=== PATIENT | female | born 1985 | race Caucasian/White ===

== ENCOUNTER 2017-02-17 14:55 | Inpatient (IN) ==
[2017-02-17] MEDS: LACTATED RINGERS 1,000 ML IV SCH ×2 (15:25→22:41)
[2017-02-17] MEDS ORDERED: INFLUENZA VIRUS VACCINE 0.5 ML SYRINGE IM ONE (15:27)
[2017-02-17] MEDS ORDERED: OXYTOCIN/LR 20 UNIT/1,000 ML BAG IV SCH (15:30)
[2017-02-17 16:23] LABS: Basophils % 0.2 % (0.0-0.8); Eosinophils % 0.1 % (0.00-10.9); Hematocrit 32.5 VOL% (35.7-47.0); Hemoglobin 11.2 GM/DL (12.0-16.0); Immature Granulocytes % 0.7 %; Immature Granulocytes Absolute 0.06 #; Lymphocytes # 1.2 10*3/uL (1.4-4.0); Lymphocytes % 14.7 % (21.3-54.2); Mean Corpuscular HGB Conc 34.5 GM/DL (32-36); Mean Corpuscular Hemoglobin 31 PG (27-34); Mean Corpuscular Volume 89.5 FL (87-102); Mean Platelet Volume 12.1 FL (9.6-12.0); Monocytes # 0.4 10*3/uL (0.11-0.8); Monocytes % 4.4 % (1.7-12.7); Neutrophils # 6.4 10*3/uL (1.4-7.4); Neutrophils % 79.9 % (38.7-73.9); Platelet Count 196 T/CUMM (130-400); Red Blood Count 3.63 MC/CUMM (3.8-5.5); Red Cell Distribution Width 11.8 % (9.3-17.3)
[2017-02-17] MEDS ORDERED: AMPICILLIN INJ 2,000 MG in SODIUM CHLORIDE 0.9% 50 ML IV ONE (16:30)
[2017-02-17] MEDS ORDERED: BUTORPHANOL 1 MG/ML VIAL ONE (16:39)
[2017-02-17] MEDS ORDERED: BUTORPHANOL 1 MG/ML VIAL IV PRN (16:40)
[2017-02-17 16:55] LABS: Alanine Aminotransferase 28 U/L (13-56); Albumin 2.5 G/DL (3.4-5.0); Alkaline Phosphatase 162 U/L (45-117); Aspartate Amino Transferase 27 U/L (0-37); Bilirubin,Total < 0.39 MG/DL (0.2-1.0); Blood Urea Nitrogen 6 MG/DL (7-18); Calcium 8.1 MG/DL (8.5-10.1); Glucose 76 MG/DL (74-106); Osmolality,Calculated 277.3 MOS/KG (273-304); Potassium 3.2 MMOL/L (3.5-5.1); Sodium 141 MMOL/L (136-145); Total Protein 6.1 G/DL (6.4-8.3); Uric Acid 5.4 MG/DL (2.6-6.0)
[2017-02-17] MEDS ORDERED: ONDANSETRON 4 MG/2 ML VIAL IV ONE (18:03)
[2017-02-17] MEDS ORDERED: ePHEDrine 50 MG/ML AMP IV PRN (18:03)
[2017-02-17] MEDS ORDERED: CITRIC ACID/SODIUM CITRATE 30 ML UDCUP PO ONE (18:03)
[2017-02-17] MEDS ORDERED: hydrOXYzine HCL 25 MG/1 ML VIAL IM PRN (18:03)
[2017-02-17] MEDS ORDERED: LACTATED RINGERS 1,000 ML IV ONE (18:03)
[2017-02-17] MEDS ORDERED: PROMETHAZINE 25 MG/1 ML VIAL IM ONE (18:03)
[2017-02-17] MEDS ORDERED: diphenhydrAMINE 50 MG/1 ML VIAL IV PRN ×2 (18:03)
[2017-02-17] MEDS ORDERED: FAMOTIDINE 20 MG/2 ML VIAL IV ONE (18:03)
[2017-02-17] MEDS ORDERED: fentaNYL 2 MCG/ROPIV 0.2% EPID 150 ML EPIDURAL SCH (18:30)
[2017-02-17 18:43] LABS: INR 0.9; PT Patient Result 9.1 SECS; Partial Thromboplastin Time 24.9 SECS (0-40)
[2017-02-17] MEDS: ONDANSETRON 4 MG/2 ML VIAL IV PRN (19:08)
[2017-02-17 20:12] LABS: Apearance,Urine CLEAR (Clear); Bilirubin,Urine Negative (Negative); Blood, Urine Negative (Negative); Glucose,Urine (UA) Negative (Negative); Ketones,Urine 20 mg/dL (Negative); Mucus,Urine Occasional /LPF (Occasional); Nitrite,Urine Negative (Negative); Protein,Urine Negative; RBC,Urine <1 /HPF (0-4); Urine Color Yellow (Yellow); Urine Specific Gravity 1.009 (1.001-1.035); Urine Urobilinogen < 2.0 EU/DL (0.2-1.0); WBC,Urine 1 /HPF (0-6)
[2017-02-17] MEDS: AMPICILLIN INJ 1,000 MG in SODIUM CHLORIDE 0.9% 50 ML IV SCH (20:40)
[2017-02-18] MEDS: AMPICILLIN INJ 1,000 MG in SODIUM CHLORIDE 0.9% 50 ML IV SCH ×3 (00:35→08:43)
[2017-02-18] MEDS ORDERED: LANOLIN 50% CREAM 0.3 OZ TUBE TOP PRN (05:41)
[2017-02-18] MEDS ORDERED: ONDANSETRON 4 MG/2 ML VIAL IV PRN (05:41)
[2017-02-18] MEDS ORDERED: oxyCODONE/ACETAMINOPHEN 5-325 MG TABLET PO PRN (05:41)
[2017-02-18] MEDS ORDERED: ACETAMINOPHEN 325 MG TABLET PO PRN (05:41)
[2017-02-18] MEDS ORDERED: BENZOCAINE 20%/MENTHOL 0.5% SPRAY 56 GM CAN TOP PRN (05:41)
[2017-02-18] MEDS ORDERED: BISACODYL 10 MG SUPP RECTAL PRN (05:41)
[2017-02-18] MEDS ORDERED: RHO(D) IMMUNE GLOBULIN 300 MCG SYRINGE IM ONE (05:41)
[2017-02-18] MEDS ORDERED: DIPH/TET/ACEL PERT BOOSTER VACCINE 0.5 ML VIAL IM ONE (05:41)
[2017-02-18] MEDS ORDERED: WITCH HAZEL PADS 100/JAR TOP PRN (05:41)
[2017-02-18] MEDS ORDERED: MEASLES/MUMPS/RUBELLA VACCINE 0.5 ML VIAL SUBCUT ONE (05:41)
[2017-02-18] MEDS ORDERED: HYDROCORTISONE 2.5% RECTAL CREAM 30 GM TUBE TOP PRN (05:41)
[2017-02-18] MEDS ORDERED: OXYTOCIN/LR 20 UNIT/1,000 ML BAG IV ONE (05:41)
[2017-02-18] MEDS: LACTATED RINGERS 1,000 ML IV SCH (09:20)
[2017-02-18] MEDS ORDERED: MAGNESIUM SULF RIDER 100 ML IV ONE (10:10)
[2017-02-18] MEDS: DOCUSATE SODIUM 100 MG CAPSULE PO SCH ×2 (10:21→21:01)
[2017-02-18] MEDS: METOPROLOL TARTRATE 25 MG TABLET PO SCH (10:21)
[2017-02-18] MEDS: MAGNESIUM SULF DRIP 40 GM/1,000 ML ML IV SCH (11:02)
[2017-02-18] MEDS: IBUPROFEN 800 MG TABLET PO PRN ×2 (14:23→22:54)
[2017-02-18] MEDS: oxyCODONE/ACETAMINOPHEN 5-325 MG TABLET PO PRN (18:35)
[2017-02-19] MEDS: IBUPROFEN 800 MG TABLET PO PRN ×2 (04:11→17:13)
[2017-02-19 04:28] LABS: Basophils % 0.3 % (0.0-0.8); Eosinophils % 0.4 % (0.00-10.9); Hematocrit 32.9 VOL% (35.7-47.0); Hemoglobin 11.5 GM/DL (12.0-16.0); Immature Granulocytes % 0.4 %; Immature Granulocytes Absolute 0.03 #; Lymphocytes # 1.3 10*3/uL (1.4-4.0); Lymphocytes % 17.1 % (21.3-54.2); Mean Corpuscular Hemoglobin 31 PG (27-34); Mean Corpuscular Volume 88.4 FL (87-102); Mean Platelet Volume 11.9 FL (9.6-12.0); Monocytes # 0.4 10*3/uL (0.11-0.8); Monocytes % 5.1 % (1.7-12.7); Neutrophils % 76.7 % (38.7-73.9); Platelet Count 175 T/CUMM (130-400); Red Blood Count 3.72 MC/CUMM (3.8-5.5); Red Cell Distribution Width 11.9 % (9.3-17.3); White Blood Count 7.8 T/CUMM (4-12)
[2017-02-19] MEDS: oxyCODONE/ACETAMINOPHEN 5-325 MG TABLET PO PRN ×2 (06:35→21:16)
[2017-02-19] MEDS: ONDANSETRON 4 MG/2 ML VIAL IV PRN (06:35)
[2017-02-19] MEDS: MAGNESIUM SULF DRIP 40 GM/1,000 ML ML IV SCH (06:42)
[2017-02-19] MEDS: DOCUSATE SODIUM 100 MG CAPSULE PO SCH ×2 (09:47→21:10)
[2017-02-19] MEDS: METOPROLOL TARTRATE 25 MG TABLET PO SCH (09:47)
[2017-02-19] MEDS ORDERED: RHO(D) IMMUNE GLOBULIN 300 MCG SYRINGE IM ONE (11:14)
[2017-02-20] MEDS: IBUPROFEN 800 MG TABLET PO PRN (04:04)
[2017-02-20] MEDS: METOPROLOL TARTRATE 25 MG TABLET PO SCH (09:54)
[2017-02-20] MEDS: DOCUSATE SODIUM 100 MG CAPSULE PO SCH (09:54)
[2017-02-20 12:08] VITALS: BP 158/89
== END 2017-02-20 14:15 | disposition home or self-care (01) | DRG 774 ==
LOC: N.LDOUT 14:55 → N.LD 15:00 → N.OB 02-19 11:08
PROVIDERS: ADMIT Obstetrics & Gynecology; ATTEND Obstetrics & Gynecology